=== PATIENT | female | born 1955 | race Caucasian/White ===

== ENCOUNTER 2016-12-27 11:16 | Emergency (ER) | payer BC ==
--- NOTE | 2016-12-27 11:21 | PDOC ---
History of Present Illness - General Stated Complaint: LIGHT HEADED Time Seen by Provider: 12/27/16 11:19 - History of Present Illness Initial Comments: 12/27/16 14:12 Chief complaint: Dizziness History of present illness: Patient is recovering from a recent URI. Her congestion and cough have resolved. However, she still has the sensation of fullness in both ears, and mild vertigo when she bends over, moves her head rapidly, for arises quickly from a lying or sitting position. She does not feel like she is going to faint, and has not fallen Review of systems: Denies fever/chills, URI symptoms, sore throat, cough, chest pain, shortness of breath, abdominal pain, nausea, vomiting, diarrhea, visual or focal neurologic symptoms, unsteadiness of gait Past medical history: Hypothyroidism on Synthroid. Otherwise healthy Social/family history reviewed and noncontributory Physical exam: Alert and oriented 3, well-developed well-nourished, cheerful and cooperative, no acute distress Afebrile, vital signs normal PERRLA, fundi benign, ENT clear Neck supple without bruit mass or nodes Chest clear with full breath sounds throughout bilaterally CV S1 and S2 normal without murmur or gallop pulses full and symmetric no JVD or edema Abdomen benign Neurological C2 to 12 intact. Strength full and symmetric. No focal sensory or motor deficits. Gait stable and unimpaired. There is slight transient vertigo with rapid head movement. Impression: Residual labyrinthine irritation post URI, mild. No sign of more significant neurological disease Plan: Symptomatic treatment with Antivert. Return to ER if symptoms worsen or additional symptoms develop. Otherwise follow-up with primary physician as directed. Patient fully ambulatory, in no distress, pain, upon discharge with family to follow-up as needed. Past History - Past Medical History Allergies/Adverse Reactions: Allergies Allergy/AdvReac Type Severity Reaction Status Date / Time No Known Drug Allergies Allergy Verified 12/27/16 11:37 Home Medications: Ambulatory Orders Levothyroxine [Synthroid -] 100 mcg PO DAILY 07/08/12 Meclizine HCl [Antivert] 1 - 2 tab PO TID PRN #20 tablet 12/27/16 Thyroid Disease: Yes - Psycho/Social/Smoking Cessation Hx Smoking History: Never smoked Hx Alcohol Use: No Drug/Substance Use Hx: No *DC/Admit/Observation/Transfer Diagnosis at time of Disposition: Labyrinthitis of both ears - Discharge Dispostion Disposition: HOME Condition at time of disposition: Stable Admit: No - Prescriptions Prescriptions: Meclizine HCl [Antivert] 1 - 2 tab PO TID PRN #20 tablet PRN Reason: Vertigo - Referrals Referrals: Julio Tan MD [Staff Physician] - 1 week - Patient Instructions Printed Discharge Instructions: DI for Vertigo
[2016-12-27 11:47] VITALS: BP 143/87; PULSE 64; TEMP 98.3; BMI 28.1
== END 2016-12-27 12:04 | disposition home or self-care (01) ==
LOC: FER 11:16
DX: H83.03 Labyrinthitis, bilateral (principal); E03.9 Hypothyroidism, unspecified
CPT/HCPCS: 99282-25